=== PATIENT | male | born 1940 | race Caucasian/White ===

== ENCOUNTER 2017-09-15 13:31 | Inpatient (IN) | payer OTHER ==
[~2017-09-15] VITALS: Ht 165.1 cm; Wt 54.4 kg
[~2017-09-15 13:31] MED LIST: AVAPRO300 MG PO; DETROL LA4 MG PO; FUROSEMIDE20 MG PO; GLIMEPIRIDE4 MG PO; HUMALOG100 U/ML SQ; LEVSIN0.125 MG PO; METFORMIN HCL1000 MG PO; METOPROLOL SUC100 MG PO; PROTONIX40 MG PO; RELAFEN500 MG PO; SIMVASTATIN40 MG PO; ZANTAC300 MG PO
[2017-09-15] MEDS ORDERED: LANTUS SOL100 UNIT/1 SUBCUTANEO (14:50)
[2017-09-15] MEDS ORDERED: LOSARTAN-HCTZ1 EAC1 PO (14:51)
[2017-09-15] MEDS ORDERED: CARBIDOPA-LEVO1 EAC5 PO (14:51)
[2017-09-15] MEDS ORDERED: LASIX20 MG PO (14:51)
[2017-09-15] MEDS ORDERED: METOPROLOL SUCC50 MG PO (14:52)
== END 2017-09-21 04:39 | disposition expired | DRG 871 ==
LOC: ER 13:31 → ICU-2 16:08 → ICU 16:08
PROC: 06HM33Z Insertion of Infusion Device into Right Femoral Vein, Percutaneous Approach (ICD-10-PCS; principal; 2017-09-15)
PROC: 3E0F7GC Introduction of Other Therapeutic Substance into Respiratory Tract, Via Natural or Artificial Opening (ICD-10-PCS; 2017-09-15)
PROC: 4A033R1 Measurement of Arterial Saturation, Peripheral, Percutaneous Approach (ICD-10-PCS; 2017-09-15)
PROC: B246ZZZ Ultrasonography of Right and Left Heart (ICD-10-PCS; 2017-09-15)
PROC: 5A1935Z Respiratory Ventilation, Less than 24 Consecutive Hours (ICD-10-PCS; 2017-09-21)
PROC: 0BH17EZ Insertion of Endotracheal Airway into Trachea, Via Natural or Artificial Opening (ICD-10-PCS; 2017-09-21)
DX: A41.1 Sepsis due to other specified staphylococcus (principal); R65.21 Severe sepsis with septic shock; J96.01 Acute respiratory failure with hypoxia; J18.9 Pneumonia, unspecified organism; I50.23 Acute on chronic systolic (congestive) heart failure; N39.0 Urinary tract infection, site not specified; B37.0 Candidal stomatitis; Z74.01 Bed confinement status; G20 Parkinson's disease; E11.9 Type 2 diabetes mellitus without complications; R60.1 Generalized edema; E88.09 Other disorders of plasma-protein metabolism, not elsewhere classified; I11.0 Hypertensive heart disease with heart failure; I35.2 Nonrheumatic aortic (valve) stenosis with insufficiency; I51.3 Intracardiac thrombosis, not elsewhere classified; B96.1 Klebsiella pneumoniae [K. pneumoniae] as the cause of diseases classified elsewhere; R13.19 Other dysphagia; B95.7 Other staphylococcus as the cause of diseases classified elsewhere; B96.4 Proteus (mirabilis) (morganii) as the cause of diseases classified elsewhere; B95.2 Enterococcus as the cause of diseases classified elsewhere; B37.2 Candidiasis of skin and nail; I46.8 Cardiac arrest due to other underlying condition; L89.150 Pressure ulcer of sacral region, unstageable; L89.620 Pressure ulcer of left heel, unstageable; L89.890 Pressure ulcer of other site, unstageable